=== PATIENT | female | born 2000 | race Two or more races ===

== ENCOUNTER 2024-01-13 10:15 | Observation (INO) | payer MEDICAID ==
[~2024-01-13] VITALS: Ht 154.9 cm; Wt 81.2 kg
[2024-01-13] MEDS ORDERED: D5W/LACTATED RINGERS 1,000 ML IV SCH (10:30)
[2024-01-13] MEDS ORDERED: D5W/LACTATED RINGERS 1,000 ML IV ONE (11:00)
== END 2024-01-13 12:33 | disposition home or self-care (01) ==
LOC: LDRP 10:15 → UNDOADMOB 10:15 → LDRP 10:27
PROVIDERS: ADMIT Obstetrics & Gynecology; ATTEND Obstetrics & Gynecology
DX: O21.2 Late vomiting of pregnancy (principal); O99.282 Endocrine, nutritional and metabolic diseases complicating pregnancy, second trimester; E86.0 Dehydration; O26.892 Other specified pregnancy related conditions, second trimester; R19.7 Diarrhea, unspecified; Z3A.21 21 weeks gestation of pregnancy
CPT/HCPCS: 59025; 81002; 94760; G0378

== ENCOUNTER 2024-01-21 19:39 | Observation (INO) | payer MEDICAID | END 2024-01-21 21:28 | disposition home or self-care (01) | LOC: LDRP 19:39 | PROVIDERS: ADMIT Obstetrics & Gynecology; ATTEND Obstetrics & Gynecology | DX: O46.92 Antepartum hemorrhage, unspecified, second trimester (principal); O99.891 Other specified diseases and conditions complicating pregnancy; M54.9 Dorsalgia, unspecified; Z3A.22 22 weeks gestation of pregnancy | CPT/HCPCS: 59025; 76815; 81002; 94760; G0378 ==

== ENCOUNTER 2024-02-29 18:46 | Observation (INO) | payer MEDICAID ==
[~2024-02-29] VITALS: Ht 154.9 cm; Wt 86.3 kg
[2024-02-29 19:15] VITALS: BP 142/72; PULSE 85; RESP 20; O2SAT 98
[2024-02-29] MEDS ORDERED: TERBUTALINE SULFATE 1 MG/ML 1ML VIAL SC SCH (20:45)
[2024-02-29] MEDS: TERBUTALINE SULFATE 1 MG/ML 1ML VIAL SC ONE (20:48)
== END 2024-03-01 00:11 | disposition home or self-care (01) ==
LOC: ER 18:46 → LDRP 19:31 → UNDODISOB 03-01 00:11
PROVIDERS: ADMIT Obstetrics & Gynecology; ATTEND Obstetrics & Gynecology
DX: O26.893 Other specified pregnancy related conditions, third trimester (principal); R10.2 Pelvic and perineal pain; Z3A.28 28 weeks gestation of pregnancy; V43.52XA Car driver injured in collision with other type car in traffic accident, initial encounter; Y93.89 Activity, other specified; Y92.89 Other specified places as the place of occurrence of the external cause; Y99.8 Other external cause status
CPT/HCPCS: 59025; 76815; 81002; 96372; G0378; J3105

== ENCOUNTER 2024-05-09 19:53 | Observation (INO) | payer MEDICAID ==
[~2024-05-09] VITALS: Ht 154.9 cm; Wt 86.2 kg
[2024-05-09] MEDS: LACTATED RINGER'S 1,000 ML IV ONE (22:08)
[2024-05-09] MEDS: LACTATED RINGER'S 1,000 ML IV SCH (22:11)
[2024-05-09 22:16] LABS: COVID19 ANTIGEN SOFIA FIA NEGATIVE (NEGATIVE); Rapid Influenza A Negative (Negative); Rapid Influenza B Negative (Negative)
== END 2024-05-09 23:05 | disposition home or self-care (01) ==
LOC: LDRP 19:53
PROVIDERS: ADMIT Obstetrics & Gynecology; ATTEND Obstetrics & Gynecology
DX: O99.513 Diseases of the respiratory system complicating pregnancy, third trimester (principal); Z20.822 Contact with and (suspected) exposure to COVID-19; J06.9 Acute upper respiratory infection, unspecified; O21.2 Late vomiting of pregnancy; O62.9 Abnormality of forces of labor, unspecified; O26.893 Other specified pregnancy related conditions, third trimester; N89.8 Other specified noninflammatory disorders of vagina; R51.9 Headache, unspecified; Z3A.38 38 weeks gestation of pregnancy
CPT/HCPCS: 36415; 59025; 76818; 81002; 87426; 87804; 96360; 96361; G0378

== ENCOUNTER 2024-05-15 02:17 | Inpatient (IN) | payer MEDICAID ==
[~2024-05-15] VITALS: Ht 152.4 cm; Wt 90.3 kg
[2024-05-15 14:07] LABS: Basophils # (auto) 0 10 ^3/uL (0-0.2); Basophils % (auto) 0.3 % (0.0-2.0); Eosinophils # (auto) 0.1 10 ^3/uL (0-0.8); Hematocrit 37.3 % (36.0-46.0); Hemoglobin 12.8 g/dL (12.2-16.2); Lymphocytes # (auto) 2.1 10 ^3/uL (0.4-5.4); Lymphocytes % (auto) 16.9 % (10.0-50.0); Mean Corpuscular Hemoglobin 32.1 pg (28.0-32.0); Mean Corpuscular Hgb Conc. 34.3 g/dL (32.0-36.0); Mean Corpuscular Volume 93.6 fL (80.0-100.0); Monocytes # (auto) 0.6 10 ^3/uL (0-1.3); Monocytes % (auto) 4.7 % (0.0-12.0); Neutrophils # (auto) 9.4 10 ^3/uL (1.6-8.6); Neutrophils % (auto) 77.1 % (37.0-80.0); Platelet Count (auto) 276 10^3/uL (140-450); Red Blood Cells 3.99 10^6/uL (4.0-5.20); Red Cell Distribution Width 14.7 % (11.8-14.3); White Blood Cell 12.1 10^3/uL (4.4-10.8)
[2024-05-15 14:22] LABS: INR 0.94 (0.9-1.15); Partial Thromboplastin Time 26.8 SEC (24.5-34.5)
[2024-05-15 14:24] LABS: Alkaline Phosphatase 111 U/L (46-116); Anion Gap 10 (5-15); Aspartate Aminotransferase 11 U/L (13-40); Bilirubin, Total 0.3 mg/dL (0.2-1.0); Blood Urea Nitrogen 7 mg/dL (9-23); Calcium 9.2 mg/dL (8.7-10.4); Carbon Dioxide 19 mmol/L (20-31); Chloride 108 mmol/L (98-107); Glucose 99 mg/dL (74-106); Potassium 3.7 mmol/L (3.5-5.1); Sodium 137 mmol/L (136-145); Total Protein 6.6 g/dL (5.7-8.2)
[2024-05-15 14:25] LABS: Alanine Aminotransferase < 9 U/L (7-40)
[2024-05-15 14:43] LABS: Urine Bacteria FEW /hpf (None Seen); Urine Blood Negative /uL (Negative); Urine Clarity Turbid (Clear); Urine Color Light-Yellow (Yellow); Urine Protein, UAD Negative (Negative); Urine Specific Gravity 1.014 (1.001-1.035); Urine Urobilinogen Normal (Negative); Urine WBC 3 /hpf (0 - 5)
[2024-05-15 14:48] LABS: Amphetamine Screen, Urine Neg (NEGATIVE)
[2024-05-15 14:49] LABS: Barbiturate Scree,Urine Neg (NEGATIVE); Benzodiazephine Screen, Urine Neg (NEGATIVE); Cannabinoid Screen, Urine Neg (NEGATIVE); Cocaine Screen, Urine Neg (NEGATIVE); Opiate Scree,Urine Neg (NEGATIVE); Phencyclidine Screen, Urine Neg (NEGATIVE)
[2024-05-16] VITALS (13 sets, daily range): BP systolic 112–147; BP diastolic 67–94; PULSE 57–112; RESP 11–20; TEMP 97.5–98.5; O2SAT 98–100
[2024-05-16] MEDS ORDERED: MORPHINE SULF PF 5 MG/10 ML VIAL ONE (07:42)
[2024-05-16] MEDS ORDERED: MEPERIDINE HCL (25 MG/ML) 1ML VIAL ONE (08:31)
[2024-05-16] MEDS ORDERED: MIDAZOLAM HCL 2MG/2ML 2ml VIAL (1mg/ml) ONE (08:36)
[2024-05-16] MEDS ORDERED: ePHEDrine SULFATE 50 MG/ML AMP ONE (08:51)
[2024-05-16] MEDS ORDERED: OXYTOCIN 10UNIT/ML 1ML VIAL ONE (08:52)
[2024-05-16] MEDS ORDERED: ONDANSETRON HCL 4 MG/2 ML VIAL ONE (08:52)
[2024-05-16] MEDS ORDERED: DexAMETHasone SOD PHOS 10MG/1ML VIAL INJ IV PRN (09:15)
[2024-05-16] MEDS ORDERED: diphenhdrAMINE HCL 50 MG/1 ML VL IV PRN ×2 (09:15→10:15)
[2024-05-16] MEDS: ONDANSETRON HCL 4 MG/2 ML VIAL IV ONE (09:15)
[2024-05-16] MEDS ORDERED: HYDROmorphone HCL 2 MG/ML VL/or syr IV PRN (09:15)
[2024-05-16] MEDS ORDERED: NALOXONE HCL 0.4 MG/ML VIAL IV PRN (09:15)
[2024-05-16] MEDS ORDERED: ONDANSETRON HCL 4 MG/2 ML VIAL IV PRN (09:15)
[2024-05-16] MEDS ORDERED: KETOROLAC TROMETH 30 MG/ML 1ML VIAL IV PRN ×2 (09:15→10:15)
[2024-05-16] MEDS ORDERED: GUM (CHEWING) 1 GUM CHEW CHEW ONE (10:15)
[2024-05-16] MEDS ORDERED: ePHEDrine SULFATE 50 MG/ML AMP IV PRN (10:15)
[2024-05-16] MEDS ORDERED: ceFAZolin 1GM/50ML 50 ML IV SCH (10:15)
[2024-05-16 11:19] LABS: Basophils # (auto) 0.1 10 ^3/uL (0-0.2); Basophils % (auto) 0.3 % (0.0-2.0); Eosinophils # (auto) 0.1 10 ^3/uL (0-0.8); Eosinophils % (auto) 0.4 % (0.0-7.0); Hematocrit 37.3 % (36.0-46.0); Hemoglobin 12.6 g/dL (12.2-16.2); Lymphocytes # (auto) 1.7 10 ^3/uL (0.4-5.4); Lymphocytes % (auto) 8.5 % (10.0-50.0); Mean Corpuscular Hemoglobin 32.1 pg (28.0-32.0); Mean Corpuscular Hgb Conc. 33.8 g/dL (32.0-36.0); Mean Corpuscular Volume 94.9 fL (80.0-100.0); Monocytes # (auto) 0.9 10 ^3/uL (0-1.3); Monocytes % (auto) 4.5 % (0.0-12.0); Neutrophils # (auto) 16.9 10 ^3/uL (1.6-8.6); Neutrophils % (auto) 86.3 % (37.0-80.0); Platelet Count (auto) 242 10^3/uL (140-450); Red Blood Cells 3.93 10^6/uL (4.0-5.20); Red Cell Distribution Width 14.6 % (11.8-14.3); White Blood Cell 19.6 10^3/uL (4.4-10.8)
[2024-05-16] MEDS: ACETAMINOPHEN IV 1000 MG/100ML (10MG/ML) IV SCH (14:30)
[2024-05-16] MEDS: ONDANSETRON HCL 4 MG/2 ML VIAL IV PRN (15:02)
[2024-05-16] MEDS: ceFAZolin 1GM/50ML 50 ML IV SCH (15:18)
[2024-05-17] VITALS (14 sets, daily range): BP systolic 108–151; BP diastolic 59–83; PULSE 55–87; RESP 15–18; TEMP 98–98.5; O2SAT 96–99
[2024-05-17 06:36] LABS: Basophils # (auto) 0 10 ^3/uL (0-0.2); Basophils % (auto) 0.3 % (0.0-2.0); Eosinophils # (auto) 0.1 10 ^3/uL (0-0.8); Eosinophils % (auto) 0.7 % (0.0-7.0); Hemoglobin 12.1 g/dL (12.2-16.2); Lymphocytes # (auto) 2.8 10 ^3/uL (0.4-5.4); Lymphocytes % (auto) 17.5 % (10.0-50.0); Mean Corpuscular Hemoglobin 32.2 pg (28.0-32.0); Mean Corpuscular Hgb Conc. 33.7 g/dL (32.0-36.0); Mean Corpuscular Volume 95.4 fL (80.0-100.0); Monocytes % (auto) 6.3 % (0.0-12.0); Neutrophils % (auto) 75.2 % (37.0-80.0); Platelet Count (auto) 252 10^3/uL (140-450); Red Blood Cells 3.78 10^6/uL (4.0-5.20); Red Cell Distribution Width 14.5 % (11.8-14.3)
[2024-05-17 08:06] LABS: RPR Non Reactive (Non Reactive)
[2024-05-17] MEDS: LACT. RINGERS/OXYTOCIN 20UNITS 1,000 ML IV ONE (08:56)
[2024-05-17] MEDS: NALBUPHINE HCL 10 MG/1ml INJECTION SUBCUT ONE (08:56)
[2024-05-17] MEDS ORDERED: DOCUSATE CALCIUM 240 MG CAP PO SCH (10:00)
[2024-05-17] MEDS: HYDROcodone-ACET 5/325MG TAB PO PRN (11:35)
[2024-05-17] MEDS: SIMETHICONE 80 MG CHEWABLE TABLET PO SCH (12:22)
[2024-05-17] MEDS: DOCUSATE SOD 100 MG CAP PO SCH (22:32)
[2024-05-17] MEDS: IBUPROFEN 800 MG TAB PO PRN (22:32)
[2024-05-18] MEDS ORDERED: DOCU-265 PO (02:45)
[2024-05-18] MEDS ORDERED: HYDR-4902 PO (02:45)
[2024-05-18] MEDS ORDERED: PRENCAP11 PO (02:45)
[2024-05-18] MEDS ORDERED: IBUP-1455 PO (02:45)
[2024-05-18 03:00] VITALS: BP 115/72; PULSE 65; RESP 18; TEMP 98.3; O2SAT 100
[2024-05-18] MEDS: HYDROcodone-ACET 5/325MG TAB PO PRN (03:06)
[2024-05-18 07:15] VITALS: BP 123/70; PULSE 75; RESP 18; TEMP 98.1; O2SAT 97
== END 2024-05-18 10:12 | disposition home or self-care (01) | DRG 540 ==
LOC: UNDOADMOB 13:05 → LDRP 13:05 → UNDOADMOB 05-16 04:44 → OBSVTOIN 05-16 04:45 → INTOOBSV 05-16 04:45 → LDRP 05-16 04:45
PROVIDERS: ADMIT Obstetrics & Gynecology; ATTEND Obstetrics & Gynecology
PROC: 10D00Z1 Extraction of Products of Conception, Low, Open Approach (ICD-10-PCS; principal; 2024-05-16 07:36)
DX: O34.211 Maternal care for low transverse scar from previous cesarean delivery (principal); K66.0 Peritoneal adhesions (postprocedural) (postinfection); O99.62 Diseases of the digestive system complicating childbirth; Z37.0 Single live birth; Z3A.39 39 weeks gestation of pregnancy
CPT/HCPCS: 36415; 80053; 80307; 81001; 85025; 85610; 85730; 86592; 86780; 86850; 86900; 86901; G0378; J0131; J2250; J2405